=== PATIENT | female | born 2000 | race Caucasian/White ===

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

== ENCOUNTER 2024-08-17 12:58 | Inpatient (IN) ==
[2024-08-17] MEDS ORDERED: Nalbuphine 10 MG/ML 1 ML VIAL IV PRN (13:21)
[2024-08-17] MEDS ORDERED: Prochlorperazine 5 mg/ml 2 ml VIAL (10 mg) IV PRN (13:21)
[2024-08-17] MEDS ORDERED: Lidocaine 1% VIAL 10 MG/ML 30 ML VIAL INJ PRN (13:21)
[2024-08-17] MEDS: Lactated Ringers 1000 ml BAG 1,000 ML IV ONE (13:30)
[2024-08-17 13:55] LABS: Hematocrit 37.7 % (35-45); Hemoglobin 12.3 g/dL (11.5-14.3); Mean Corpuscular Hemoglobin 30.4 pg (27-33); Mean Corpuscular Hgb Conc 32.7 g/dL (31-36); Mean Corpuscular Volume 93.1 fL (80-97); Mean Platelet Volume 9.9 fL (7.5-11.2); Platelet Count 161 10^3/uL (150-450); Red Blood Count 4.05 10^6/uL (3.63-4.92); Red Cell Distribution Width 14.2 % (12-17)
[2024-08-17 14:08] LABS: Albumin 3.5 g/dL (3.2-5.2); Calcium 9.5 mg/dL (8.6-10.3); Creatinine, Serum 1.01 mg/dL (0.51-0.95); Globulin 3.6 g/dL (2-4); Potassium 3.8 mmol/L (3.5-5.0); Total Protein 7.1 g/dL (6.4-8.9); eGFR CKD-EPI 80.7 (>60)
[2024-08-17] MEDS: Lactated Ringers 1000 ml BAG 1,000 ML IV SCH ×2 (14:12→16:29)
[2024-08-17] MEDS: Penicillin G Potassium IV 5,000,000 UNITS in NS 0.9% 100 ml BAG 100 ML IVPB ONE (14:30)
[2024-08-17 14:35] LABS: ABS Lymphocytes 0.7 10^3/uL (1.0-4.8); ABS Monocytes 0.9 10^3/uL (0.0-0.9); ABS Neutrophils 22.3 10^3/uL (1.5-7.6)
[2024-08-17 15:04] LABS: Hepatitis B Surface Antigen Nonreactive (Nonreactive)
[2024-08-17 15:13] LABS: HIV 4th Generation Nonreactive (Nonreactive)
[2024-08-17 15:21] LABS: Hepatitis C Antibody Negative (Negative)
[2024-08-17] MEDS: Oxytocin in LR 20,000 MILLI.UNIT/1,000 ML BAG IV SCH (16:17)
[2024-08-17] MEDS: Oxytocin in LR 20,000 MILLI.UNIT/1,000 ML BAG IV ONE (16:26)
[2024-08-17] MEDS: Buffered Lidocaine 1% SYRIN 1 ml INTRADERM ONE (16:27)
[2024-08-17 16:47] LABS: Urine Appearance Clear; Urine Bilirubin Negative (Negative); Urine Blood Negative (Negative); Urine Color Dark-Yellow; Urine Glucose Negative (Negative); Urine Ketones 2+ (Negative); Urine Nitrite Negative (Negative); Urine Protein 1+ (>=30 mg/dL) (Negative); Urine Specific Gravity 1.039 (1.002-1.030); Urine Urobilinogen 1+ (Negative)
[2024-08-17 16:48] LABS: Urine Benzodiazepine Screen None Detected (None Detect); Urine Cannabinoids Screen None Detected (None Detect); Urine Opiates Screen None Detected (None Detect)
[2024-08-17 16:56] LABS: Urine Bacteria Absent /HPF (Absent); Urine Red Blood Cell Trace(0-2/hpf) /HPF (0-Trace); Urine Squamous Epithelial Cell Present /HPF (Absent); Urine White Blood Cell Trace(0-5/hpf) /HPF (0-Trace)
[2024-08-17] MEDS ORDERED: Lidocaine/Epinephrin 1.5%/200 5 ML AMP INJ ONE (18:02)
[2024-08-17] MEDS ORDERED: Bupivacaine 0.25% SDV 30 ML ONE (18:04)
[2024-08-17] MEDS: Acetaminophen IV 1 GM/100ML 1,000 MG/100 ML BAG IV PRN (18:04)
[2024-08-17] MEDS: Phenylephrine 40 mcg/mL 10mL (400mcg) SYRINGE ONE (18:41)
[2024-08-17] MEDS ORDERED: AMPICILLIN IVPB ONE (19:04)
[2024-08-17] MEDS ORDERED: NS 0.9% IVPB ONE (19:04)
[2024-08-17] MEDS ORDERED: Phenylephrine 40 mcg/mL 10mL (400mcg) SYRINGE ONE ×2 (19:05→19:45)
[2024-08-17] MEDS ORDERED: Morphine PF AMP (0.5MG/ML) 5 MG/10 ML AMP ONE (19:05)
[2024-08-17] MEDS ORDERED: Succinylcholine 200 mg VIAL 20 mg/ml 10 ml VIAL (200 mg) ONE (19:40)
[2024-08-17] MEDS ORDERED: Lidocaine 2% PF 10 ML AMP (OR) ONE (19:45)
[2024-08-17] MEDS ORDERED: fentaNYL 250 mcg/5 ml 50 MCG/ML 5 ml VIAL (250 MCG) ONE (19:45)
[2024-08-17] MEDS ORDERED: Midazolam 5 mg/5 ml VIAL 1 mg/ml 5 ml VIAL (5 mg) ONE (19:45)
[2024-08-17] MEDS ORDERED: Propofol 10 MG/ML 20 ML BTL ONE (19:45)
[2024-08-17] MEDS ORDERED: Ondansetron 4 mg VIAL 2 MG/ML 2 ml VIAL ONE (20:01)
[2024-08-17] MEDS: OBEPIDURAL (200 ML) 0 ML EPIDURAL ONE (20:12)
[2024-08-17] MEDS: fentaNYL 100 mcg/2 ml 50 MCG/ML VIAL ONE (20:28)
[2024-08-17] MEDS: NS 0.9% IVPB ONE (20:29)
[2024-08-17] MEDS: GENTAMICIN ADULT IVPB ONE (20:29)
[2024-08-17] MEDS: Ampicillin IV 2 GM in NS 0.9% 100 ml BAG 100 ML IVPB ONE (20:35)
[2024-08-17] MEDS ORDERED: Polyethylene Glycol 3350 17 GM PACKET PO PRN (20:40)
[2024-08-17] MEDS ORDERED: Witch Hazel PAD JAR TOPICAL PRN (20:40)
[2024-08-17] MEDS ORDERED: Glycerin ADULT 2.4 gm SUPP PR PRN (20:40)
[2024-08-17] MEDS ORDERED: Dibucaine 1% OINT 28.35 GM TUBE PR PRN (20:40)
[2024-08-17] MEDS ORDERED: Naloxone 0.4 mg VIAL 0.4 mg/ml 1 ml VIAL IV PUSH PRN (20:44)
[2024-08-17] MEDS ORDERED: Flumazenil 0.5 mg/5 ml 0.1 MG/ML 5 ml VIAL ONE (21:14)
[2024-08-17] MEDS ORDERED: Naloxone 4 mg VIAL 0.4 MG/ML 10 ml VIAL (4 mg) ONE (21:14)
[2024-08-17] MEDS ORDERED: Ondansetron 4 mg VIAL 2 MG/ML 2 ml VIAL IV PRN (21:43)
[2024-08-17] MEDS ORDERED: fentaNYL 100 mcg/2 ml 50 MCG/ML VIAL IV PRN (21:43)
[2024-08-17] MEDS ORDERED: Naloxone 0.4 mg VIAL 0.4 mg/ml 1 ml VIAL IV PRN (21:43)
[2024-08-17] MEDS: Morphine PCA ADULT 5 MG/ML 30 ML PCA SCH (22:43)
[2024-08-18 07:41] LABS: ABS Lymphocytes 1.1 10^3/uL (1.0-4.8); ABS Monocytes 0.5 10^3/uL (0.0-0.9); ABS Neutrophils 12.8 10^3/uL (1.5-7.6); ABS Nucleated RBC 0.01 10^3/ul; Eosinophil % 0.1 %; Hematocrit 27.3 % (35-45); Lymphocyte % 7.4 %; Mean Corpuscular Hemoglobin 30.9 pg (27-33); Mean Corpuscular Volume 93.9 fL (80-97); Mean Platelet Volume 10.2 fL (7.5-11.2); Platelet Count 119 10^3/uL (150-450); Red Cell Distribution Width 14.3 % (12-17); White Blood Count 14.3 10^3/uL (3.8-11.8)
[2024-08-18] MEDS: Lactated Ringers 1000 ml BAG 1,000 ML IV SCH (09:42)
[2024-08-18 11:57] LABS: ABS Lymphocytes 1.1 10^3/uL (1.0-4.8); ABS Monocytes 0.4 10^3/uL (0.0-0.9); ABS Neutrophils 11.2 10^3/uL (1.5-7.6); Eosinophil % 0.1 %; Hematocrit 27.4 % (35-45); Hemoglobin 9.3 g/dL (11.5-14.3); Lymphocyte % 8.8 %; Mean Corpuscular Hemoglobin 31.8 pg (27-33); Mean Corpuscular Hgb Conc 33.9 g/dL (31-36); Mean Corpuscular Volume 93.8 fL (80-97); Mean Platelet Volume 8.8 fL (7.5-11.2); Platelet Count 105 10^3/uL (150-450); Red Blood Count 2.92 10^6/uL (3.63-4.92); White Blood Count 12.8 10^3/uL (3.8-11.8)
[2024-08-18] MEDS: Clindamycin 900 MG/D5W BAG 900 MG/50 ML BAG IVPB SCH (12:03)
[2024-08-18] MEDS: Heparin 5000 UNITS/ML 1 mL VIAL SUBCUT SCH (12:04)
[2024-08-18 12:09] LABS: Activated Partial Thrombo Time 25.1 seconds (26.0-38.0); INR 1.16 (0.85-1.14)
[2024-08-18 12:41] LABS: Creatinine, Serum 0.88 mg/dL (0.51-0.95); eGFR CKD-EPI 95.2 (>60)
[2024-08-18] MEDS ORDERED: oxyCODONE 5 mg/5 ml ORAL.SOLN UDC PO PRN ×2 (12:50)
[2024-08-18] MEDS: Oxytocin in LR 20,000 MILLI.UNIT/1,000 ML BAG IV SCH (19:27)
[2024-08-20 08:40] VITALS: BP 108/70
== END 2024-08-20 14:35 | disposition home or self-care (01) | DRG 540 ==
LOC: MCHOBOUT 13:02 → MCHOB 13:20
PROVIDERS: ADMIT Obstetrics & Gynecology; ATTEND Obstetrics & Gynecology